=== PATIENT | male | born 1970 | race Caucasian/White ===

== ENCOUNTER 2020-06-14 15:59 | Outpatient (REF) | payer BC, SELFPAY | END 2020-06-14 16:00 | disposition home or self-care (01) | LOC: HO.LAB 15:59 | PROVIDERS: Visit Provider Internal Medicine | DX: Z20.828 Contact with and (suspected) exposure to other viral communicable diseases (principal) | CPT/HCPCS: C9803; U0003 ==

== ENCOUNTER 2022-04-18 07:15 | Day surgery (SDC) | payer BC, SELFPAY ==
--- NOTE | 2022-04-17 10:07 | HO.ANESPROP2 ---
Documented by User: Kaelyn Rowley NP 04/17/22 10:08 HPI - Anesthesia Eval Consult details Narrative: 51yo M for Colonoscopy [facility] Past Medical History Medical History GERD (gastroesophageal reflux disease) Hypertension Hypothyroidism Lupus EMRE on CPAP Surgical History Surgical History History of carpal tunnel release History of esophagogastroduodenoscopy (EGD) History of gastric bypass History of lumbar spinal fusion History of right knee surgery Social History Social History Patient Tobacco Use Status: Former Tobacco user Are you DNR?: No Advance Directives: No Advance Directives Information Provided: Yes Nutrition Risks: No Nutritional Risk Meds Allergies Allergy/AdvReac Type Severity Reaction Status Date / Time No Known Allergies Allergy Verified 04/18/22 07:56 Home Medications Medication Instructions Recorded Confirmed Last Taken Type jhkdych-txwjfbrolfbqc-kadaguco 250 2 tab PO Q6H PRN Migraine Headache 04/17/22 04/17/22 04/09/22 History mg-250 mg-65 mg tablet (Excedrin Extra Strength) blood sugar diagnostic (OneTouch 04/17/22 04/17/22 Unknown History Verio test strips) hydrochlorothiazide 25 mg tablet 1 tab PO DAILY 04/17/22 04/17/22 04/16/22 History levothyroxine 200 mcg tablet 1 tab PO DAILY 04/17/22 04/17/22 04/18/22 History (Synthroid) lisinopril 30 mg tablet 1 tab PO DAILY 04/17/22 04/17/22 04/18/22 History metformin 500 mg tablet 1 tab PO BID 04/17/22 04/17/22 04/16/22 History omeprazole 40 mg capsule,delayed 40 mg PO DAILY 04/17/22 04/17/22 04/17/22 History release Exam Exam Date and Time: April 17, 2022 1007 Assessment and Plan Assessment Anesthesia Assessment: Chart Reviewed Documented by User: Angelita Archibald MD 04/18/22 09:02 [facility] Past Medical History Medical History GERD (gastroesophageal reflux disease) Hypertension Hypothyroidism Lupus EMRE on CPAP Surgical History Surgical History History of carpal tunnel release History of esophagogastroduodenoscopy (EGD) History of gastric bypass History of lumbar spinal fusion History of right knee surgery History of Problems with Anesthesia: No Social History Social History Patient Tobacco Use Status: Former Tobacco user Are you DNR?: No Advance Directives: No Advance Directives Information Provided: Yes Nutrition Risks: No Nutritional Risk Meds Allergies Allergy/AdvReac Type Severity Reaction Status Date / Time No Known Allergies Allergy Verified 04/18/22 07:56 Home Medications Medication Instructions Recorded Confirmed Last Taken Type khdywmx-dqmjoxemoajlk-earctpvx 250 2 tab PO Q6H PRN Migraine Headache 04/17/22 04/17/22 04/09/22 History mg-250 mg-65 mg tablet (Excedrin Extra Strength) blood sugar diagnostic (OneTouch 04/17/22 04/17/22 Unknown History Verio test strips) hydrochlorothiazide 25 mg tablet 1 tab PO DAILY 04/17/22 04/17/22 04/16/22 History levothyroxine 200 mcg tablet 1 tab PO DAILY 04/17/22 04/17/22 04/18/22 History (Synthroid) lisinopril 30 mg tablet 1 tab PO DAILY 04/17/22 04/17/22 04/18/22 History metformin 500 mg tablet 1 tab PO BID 04/17/22 04/17/22 04/16/22 History omeprazole 40 mg capsule,delayed 40 mg PO DAILY 04/17/22 04/17/22 04/17/22 History release Exam Airway Mallampati Class: III TM Dist: >3cm Neck ROM: Limited Loose/Missing/Broken Teeth: No Heart: RRR Lungs: CTA Assessment and Plan Final Anesthetic Review History of Problems with Anesthesia: No NPO: Yes ASA Class: III Final Preanesthetic Review: Meds/Allgs Chart Reviewed, Consent Obtained/Reviewed and Anes Risks/Benef Reviewed Patient Risk: Intermediate Procedure Risk: Low Anesthetic Plan Anesthetic Plan: MAC: Disposition: Standard PACU
[2022-04-18 07:12] VITALS: BMI 52.7
[2022-04-18 07:15] VITALS: BP 155/84; PULSE 90; RESP 18; TEMP 36.8; O2SAT 97
[2022-04-18] MEDS: Lactated Ringers 1,000 ML 100 ML IVCONT (07:40)
[2022-04-18 07:54] LABS: Glucose, Whole Blood 128 mg/dL (60-115)
--- NOTE | 2022-04-18 07:57 | MHC.SHP ---
Pre-Procedural Eval Section A Date of Service: 04/18/22 Section B Chief Complaint: screening Details of Present Illness: see H&P no changes Relevant Family History (Specify if Yes): No Relevant Social History: None Present Medications: see Short Stay Collaborative assessment Medical History: No relevant PMH History of Previous Operations: No relevant previous surgery Allergies: Allergies Allergy/AdvReac Type Severity Reaction Status Date / Time No Known Allergies Allergy Verified 04/18/22 07:56 Review of Systems Sugical H&P ROS: Negative: Constitution, Cardiovascular, Respiratory, Neurological, Psychiatric, Hem-Onc, Allergic/Immunologic, Gastrointestinal, Genitourinary, Musculoskeletal, Integumentary, Endocrine and Eyes/Ears/Nose/Throat Exam Surgical H&P Exam: Normal: HEENT, Normal: Heart, Normal: Lungs, Normal: Extremities, Normal: Abdomen, Normal: Skin and Normal: Neurological Plan Diagnosis/Plan: Unchanged I have reviewed the history and physical and performed a pertinent physical examination on my patient. No changes have occurred unless specified.
[2022-04-18 08:40] VITALS: BP 116/74; PULSE 85; RESP 20; TEMP 36.7; O2SAT 96
--- NOTE | 2022-04-18 08:44 | PM.OP ---
Brief Operative Note Date of Service: 04/18/22 Pre-op diagnosis: screening Post-op diagnosis: same Procedure: col;onoscopy Surgeon: Cuate Curry Anesthesia: MAC Was an Territory Manager used for this Procedure?: No Estimated blood loss (mL): 2 Pathology: other Condition: stable Disposition: PACU
[2022-04-18 08:55] VITALS: BP 106/67; PULSE 88; RESP 20; TEMP 36.8; O2SAT 96
[2022-04-18 09:05] VITALS: BP 114/66; PULSE 80; RESP 20; TEMP 36.8; O2SAT 96
--- NOTE | 2022-04-18 09:09 | OP_ITS ---
SURGEON: Cuate Curry MD PREOPERATIVE DIAGNOSIS: POSTOPERATIVE DIAGNOSIS: PROCEDURE PERFORMED: Colonoscopy with biopsy and snare polypectomy DATE: 04/18/22 INDICATIONS: Colon cancer screening ESTIMATED BLOOD LOSS: COMPLICATIONS: ANESTHESIA: ASSISTANTS: SPECIMENS: DESCRIPTION OF PROCEDURE: History and physical performed. The risks and benefits of the procedure were explained to the patient. The patient was placed in the left lateral decubitus position. Informed consent was obtained prior to the procedure. The digital rectal exam was performed and was found to be normal. The Olympus pediatric video colonoscope was introduced into the rectum and advanced to the cecum without difficulty. The cecum was identified by transillumination, palpation, and identification of ileocecal valve. Examination was performed. The scope was removed. He tolerated the procedure well and was returned to recovery area in stable condition. FINDINGS: The terminal ileum was normal. The visualized colonic mucosa was normal. The quality of the prep was good. Three polyps were identified, two were present in the cecum measuring less than 5 mm. These were removed with biopsy forceps. The 3rd polyp at 70 cm measured approximately 8 mm and was removed with a snare. The polyp was recovered via suction. No other polyps were identified. Retroflexed examination showed some small internal hemorrhoids. The quality of the prep was good. IMPRESSION: Colon polyps. RECOMMENDATION: Follow up the biopsy results. MD AYESHA Aldana/STACEY / [id number] MTDD
== END 2022-04-18 09:32 | disposition home or self-care (01) ==
PROVIDERS: PCP Internal Medicine; Visit Provider Internal Medicine Gastroenterology
PROC: 0DJD8ZZ Inspection of Lower Intestinal Tract, Via Natural or Artificial Opening Endoscopic (ICD-10-PCS; CPT 45378; principal; 2022-04-18 08:10)
DX: Z12.11 Encounter for screening for malignant neoplasm of colon (principal); D12.0 Benign neoplasm of cecum; D12.4 Benign neoplasm of descending colon; K64.8 Other hemorrhoids; K21.9 Gastro-esophageal reflux disease without esophagitis; I10 Essential (primary) hypertension; G47.33 Obstructive sleep apnea (adult) (pediatric); E03.9 Hypothyroidism, unspecified; M32.9 Systemic lupus erythematosus, unspecified; Z79.899 Other long term (current) drug therapy; Z99.89 Dependence on other enabling machines and devices; Z79.1 Long term (current) use of non-steroidal anti-inflammatories (NSAID); Z98.84 Bariatric surgery status
CPT/HCPCS: 45385; 45380; 82947; 88305

== ENCOUNTER 2022-05-29 13:16 | Emergency (ER) | payer BC, SELFPAY ==
--- NOTE | ~2022-05-29 | XR_ITS ---
EXAMINATION: RIGHT HIP, RIGHT KNEE CLINICAL INFORMATION: s/p near fall c right hip/knee pain COMPARISON: CT chest 04/18/2022 TECHNIQUE: 4 views right knee, single view pelvis with 2 additional views right hip FINDINGS: Posterior pedicular screws and disc spacers are visualized in the lower lumbosacral spine. No pelvic fracture is seen. The right hip is unremarkable without fracture or bony destructive lesion. Mild degenerative changes are present in the knee with some marginal tibial plateau osteophytes. No fractures or dislocations are seen. No chondrocalcinosis or joint effusion. XR/XR knee RT 4V IMPRESSION: No evidence of an acute osseous injury. Mild degenerative changes in the knee.
--- NOTE | ~2022-05-29 | XR_ITS ---
EXAMINATION: RIGHT HIP, RIGHT KNEE CLINICAL INFORMATION: s/p near fall c right hip/knee pain COMPARISON: CT chest 04/18/2022 TECHNIQUE: 4 views right knee, single view pelvis with 2 additional views right hip FINDINGS: Posterior pedicular screws and disc spacers are visualized in the lower lumbosacral spine. No pelvic fracture is seen. The right hip is unremarkable without fracture or bony destructive lesion. Mild degenerative changes are present in the knee with some marginal tibial plateau osteophytes. No fractures or dislocations are seen. No chondrocalcinosis or joint effusion. XR/XR hip RT w [id number] IMPRESSION: No evidence of an acute osseous injury. Mild degenerative changes in the knee.
[2022-05-29 14:16] VITALS: BP 137/83; PULSE 90; RESP 16; TEMP 36.1; O2SAT 95; BMI 52.6
--- NOTE | 2022-05-29 14:19 | ED_ITS ---
HPI - Fall General Chief Complaint: Fall <BHARTI Heard - Last Filed: 05/29/22 14:20> Stated Complaint: r leg pain <BHARTI Heard - Last Filed: 05/29/22 14:20> Time Seen by Provider: 05/29/22 16:10 <BHARTI Heard - Last Filed: 05/29/22 14:20> Source: patient <BHARTI Dixon - Last Filed: 05/29/22 16:47> Mode of arrival: ambulatory <BHARTI Dixon - Last Filed: 05/29/22 16:47> Limitations: no limitations <BHARTI Dixon - Last Filed: 05/29/22 16:47> History of Present Illness HPI Narrative: 51-year-old male with history of morbid obesity, diabetes, HT, hypothyroidism, GERD who presents to the ER for evaluation of a right hamstring injury sustained at 04:30 this morning. Patient states he was walking outside when he slipped on some ice. He didn't actually fall down but he pulled his leg and felt some pop behind his leg. He has been able to walk on it but with some discomfort. He also reports pain with sitting. He works as a diesel truck mechanic, tried to go to work but he was too uncomfortable so he came to the ER for further e valuation. No other injuries. <BHARTI Dixon - Last Filed: 05/29/22 16:47> MD complaint: fall <BHARTI Dixon - Last Filed: 05/29/22 16:47> Onset (ago): hour(s) (12) <BHARTI Dixon - Last Filed: 05/29/22 16:47> Fall from: standing <BHARTI Dixon - Last Filed: 05/29/22 16:47> Fall witnessed: no <BHARTI Dixon - Last Filed: 05/29/22 16:47> Place fall occurred: street <BHARTI Dixon - Last Filed: 05/29/22 16:47> Loss of consciousness: none <BHARTI Dixon - Last Filed: 05/29/22 16:47> Prolonged down time: no <BHARTI Dixon - Last Filed: 05/29/22 16:47> Symptoms prior to fall: none <BHARTI Dixon - Last Filed: 05/29/22 16:47> Context: tripped/slipped <BHARTI Dixon - Last Filed: 05/29/22 16:47> Location of injury - extremities: right: thigh <BHARTI Dixon - Last Filed: 05/29/22 16:47> Severity: moderate <BHARTI Dixon - Last Filed: 05/29/22 16:47> Severity scale (1-10): 6 <BHARTI Dixon - Last Filed: 05/29/22 16:47> Quality: aching <BHARTI Dixon - Last Filed: 05/29/22 16:47> Associated symptoms (after fall): denies <BHARTI Dixon - Last Filed: 05/29/22 16:47> Related Data Home Medications: Home Medications Medication Instructions Recorded Confirmed gccxycd-dkcosmhpoyhyw-dxnzmeqo 250 2 tab PO Q6H PRN Migraine Headache 04/17/22 04/17/22 mg-250 mg-65 mg tablet (Excedrin Extra Strength) blood sugar diagnostic (OneTouch 04/17/22 04/17/22 Verio test strips) hydrochlorothiazide 25 mg tablet 1 tab PO DAILY 04/17/22 04/17/22 levothyroxine 200 mcg tablet 1 tab PO DAILY 04/17/22 04/17/22 (Synthroid) lisinopril 30 mg tablet 1 tab PO DAILY 04/17/22 04/17/22 metformin 500 mg tablet 1 tab PO BID 04/17/22 04/17/22 omeprazole 40 mg capsule,delayed 40 mg PO DAILY 04/17/22 04/17/22 release Previous Rx's Medication Instructions Recorded cane #1 ea 05/29/22 ibuprofen 800 mg tablet 800 mg PO Q8H PRN pain #20 tabs 05/29/22 lidocaine 5 % topical patch 1 patch topical DAILY #15 ea 05/29/22 <BHARTI Heard - Last Filed: 05/29/22 14:20> Allergies/Adverse Reactions: Allergies Allergy/AdvReac Type Severity Reaction Status Date / Time No Known Allergies Allergy Verified 04/18/22 07:56 <BHARTI Heard - Last Filed: 05/29/22 14:20> Review of Systems Review of Systems: Constitutional: No Fever, No Chills ENT/Mouth: No sore throat, No Rhinorrhea Cardiovascular: No Chest Pain, No SOB Gastrointestinal: No Nausea, No Vomiting, No abdominal Pain Musculoskeletal: No joint pain, + Myalgias Skin: No Skin Lesions, No rash Neuro: No Weakness, No Numbness, No Dizziness, No Headache Heme/Lymph: No Bruising <BHARTI Dixon - Last Filed: 05/29/22 16:47> [facility] Past Medical History Medical History: Medical History GERD (gastroesophageal reflux disease) Hypertension Hypothyroidism Lupus EMRE on CPAP <BHARTI Heard - Last Filed: 05/29/22 14:20> Surgical History: Surgical History History of carpal tunnel release History of esophagogastroduodenoscopy (EGD) History of gastric bypass History of lumbar spinal fusion History of right knee surgery <BHARTI Heard - Last Filed: 05/29/22 14:20> Social History Social History: Social History Patient Tobacco Use Status: Former Tobacco user Advance Directives: Yes Advance Directives Information Provided: Yes Advance Directives on File: No <BHARTI Heard - Last Filed: 05/29/22 14:20> Physical Exam Vital Signs: Vital Signs: Last Vital Signs Temp 97.0 F 05/29/22 14:16 Pulse 90 05/29/22 14:16 Resp 16 05/29/22 14:16 BP 137/83 05/29/22 14:16 Pulse Ox 95 05/29/22 14:16 O2 Del Method 05/29/22 14:16 BMI result Body Mass Index 52.6 <BHARTI Heard - Last Filed: 05/29/22 14:20> Vital Signs: Last Vital Signs Temp 97.0 F 05/29/22 14:16 Pulse 90 05/29/22 14:16 Resp 16 05/29/22 14:16 BP 137/83 05/29/22 14:16 Pulse Ox 95 05/29/22 14:16 O2 Del Method 05/29/22 14:16 BMI result Body Mass Index 52.6 <BHARTI Dixon - Last Filed: 05/29/22 16:47> Appearance: Alert. Oriented X3. No acute distress. HEENT: normal inspection CVS: Normal heart rate and rhythm. Pulses normal. Respiratory: No respiratory distress. Skin: Skin warm and dry. Normal skin color. Normal skin turgor. No rashes. Extremities: Normal inspection of bilateral lower extremities. There is tenderness of the posterior right thigh throughout. No ecchymosis appreciated. Pain with flexion and extension of the knee. Normal range of motion of the knee and hip. Normal strength Neuro: Oriented X 3. No motor deficit. No sensory deficit. slightly antalgic gait but steady <BHARTI Dixon - Last Filed: 05/29/22 16:47> Course Course Course Narrative: [facility]-14:20PM - 51yoM presenting to the ED c c/o of R Hip/posterior upper leg/and right knee pain after he had a near fall prior to arrival today on ice. Denies actual fallen to the ground head injury loss of consciousness or any other injuries complaints or concerns at this time. Plan: Normal steady gait. Will obtain x-ray of right hip/right knee patient wi ll be sent back to the waiting room for further evaluation treatment emergency minor care. <BHARTI Heard - Last Filed: 05/29/22 14:20> Reevaluation(s) Reevaluation #1: patient seen and examined in the treatment room. X-rays reviewed. His pain is mostly muscular involving the right hamstring. Most likely sprain, he also may possibly have a partial tear. There is no ecchymosis on examination and his strength and range of motion are intact. No urgent need for orthopedics referral. Will treat conservatively with pain control, rest, ice and elevation. Will have him refer to orthopedics if he has ongoing pain despite these conservative measures. Patient agrees with plan. Stable for discharge home <BHARTI Dixon - Last Filed: 05/29/22 16:47> Medications Administered Discontinued Medications Generic Name Dose Route Start Last Admin Trade Name Freq PRN Reason Stop Dose Admin Acetaminophen 650 mg 05/29/22 16:32 05/29/22 16:36 Acetaminophen 325 Mg Tablet PO 05/29/22 16:33 650 mg ONCE ONE Administration <BHARTI Heard - Last Filed: 05/29/22 14:20> Medications Administered Discontinued Medications Generic Name Dose Route Start Last Admin Trade Name Rogelio PRN Reason Stop Dose Admin Acetaminophen 650 mg 05/29/22 16:32 05/29/22 16:36 Acetaminophen 325 Mg Tablet PO 05/29/22 16:33 650 mg ONCE ONE Administration <BHARTI Dixon - Last Filed: 05/29/22 16:47> Discharge Plan Discharge Clinical Impression: Hamstring muscle strain <BHARTI Heard Last Filed: 05/29/22 14:20> Patient Disposition: Home, Self-Care <BHARTI Heard Last Filed: 05/29/22 14:20> Instructions: Hamstring Injury (ED) <BHARTI Heard - Last Filed: 05/29/22 14:20> Additional Instructions: X-rays today did not show any acute injuries or broken bones. Rest your leg and elevate it under some pillows when possible. Recommend DAYSI wrap for support and compression. Use ice several times per day for the next 48 hours. You may bear weight as tolerated. If pain is too severe, use crutches until better. Take Motrin and/or Tylenol as needed for pain. Follow up with your doctor as needed. Follow up with Orthopedics if pain persists. <BHARTI Heard - Last Filed: 05/29/22 14:20> Prescriptions: New ibuprofen 800 mg tablet 800 mg PO Q8H PRN (Reason: pain) Qty: 20 0RF lidocaine 5 % adhesive patch,medicated 1 patch topical DAILY Qty: 15 0RF Rx Instructions: leave on most painful area for up to 12 hrs (DME) cane Device See Rx Instructions .Route Qty: 1 0RF Rx Instructions: As directed No Action metformin 500 mg tablet 1 tab PO BID (DME) OneTouch Verio test strips Strip MISCELLANEOUS omeprazole 40 mg Capsule,Delayed Release(Dr/Ec) 40 mg PO DAILY lisinopril 30 mg tablet 1 tab PO DAILY levothyroxine [Synthroid] 200 mcg tablet 1 tab PO DAILY hydrochlorothiazide 25 mg tablet 1 tab PO DAILY Excedrin Extra Strength 250-250-65 mg Tablet 2 tab PO Q6H PRN (Reason: Migraine Headache) <BHARTI Heard - Last Filed: 05/29/22 14:20> Referrals: [facility] [place] Orthopedic Surgeons [Provider Group] Charlie Wilson MD [Primary Care Provider] - <BHARTI Heard - Last Filed: 05/29/22 14:20> Stand Alone Forms: Work/School Release <BHARTI Heard - Last Filed: 05/29/22 14:20> Interventions: ED Discharge Assessment Last Done: 05/29/22 16:38 <BHARTI Heard - Last Filed: 05/29/22 14:20> Discharge Date/Time: 05/29/22 16:38 <BHARTI Heard - Last Filed: 05/29/22 14:20>
[2022-05-29] MEDS: Acetaminophen 325 MG TABLET 650 MG PO (16:36)
== END 2022-05-29 16:38 | disposition home or self-care (01) ==
PROVIDERS: Emergency Provider Internal Medicine; PCP Internal Medicine
DX: S76.911A Strain of unspecified muscles, fascia and tendons at thigh level, right thigh, initial encounter (principal); M25.561 Pain in right knee; M25.551 Pain in right hip; W00.0XXA Fall on same level due to ice and snow, initial encounter; Y93.9 Activity, unspecified; Y92.9 Unspecified place or not applicable; Y99.9 Unspecified external cause status; Z79.899 Other long term (current) drug therapy
CPT/HCPCS: 73502; 73564; 99283

== ENCOUNTER 2023-07-29 16:05 | Outpatient (REF) | payer BC, SELFPAY ==
[2023-07-29 17:35] LABS: MANUAL DIFF FLAG NO
[2023-07-29 17:48] LABS: Basophils Absolute Auto 0.1 X10*3/uL (0.0-0.2); Basophils Percent Auto 0.7 % (0-2); Eosinophils Absolute Auto 0.3 X10*3/uL (0.0-0.4); Eosinophils Percent Auto 3.6 % (0-4); Hematocrit 43.3 % (42.0-52.0); Hemoglobin 14.2 g/dl (14.0-18.0); Imm Gran Abs Auto 0.02 X10*3/uL (0.00-0.03); Imm Gran Pct Auto 0.2 % (0.0-0.4); Lymphocytes Absolute Auto 2.8 X10*3/uL (1.2-4.9); Lymphocytes Percent Auto 32.1 % (20-40); Mean Corpuscular HGB Conc 32.8 g/dl (31.0-36.0); Mean Corpuscular Hemoglobin 29.4 pg (27.0-33.0); Mean Corpuscular Volume 89.6 fL (80.0-98.0); Mean Platelet Volume 10.1 fL (9.4-12.4); Monocytes Absolute Auto 0.7 X10*3/uL (0.1-1.2); Monocytes Percent Auto 8.3 % (2-11); Neutrophils Absolute Auto 4.9 x10*3/uL (2.0-8.3); Neutrophils Percent Auto 55.1 % (45-73); Platelet Count 241 X10*3/uL (160-400); Red Blood Count 4.83 X10*6/uL (4.60-5.80); Red Cell Distribution Width 12.6 % (11.0-16.0); White Blood Count 8.8 X10*3/uL (4.8-10.8)
[2023-07-29 18:42] LABS: Alanine Aminotransferase 137 U/L (0-40); Albumin Level 3.7 g/dL (3.5-5.0); Alkaline Phosphatase 77 U/L (39-117); Anion Gap 17 (12-20); Aspartate Amino Transferase 104 U/L (5-37); Bilirubin Total 0.3 mg/dL (0.0-1.0); Blood Urea Nitrogen 16 mg/dL (9-16); Calcium 9.3 mg/dL (8.4-10.2); Carbon Dioxide 25 mmol/L (22-29); Chloride 98 mmol/L (96-108); Estimated Glomerular Filt Rate > 60; Glucose Random 303 mg/dL (60-115); Iron 41 mcg/dL (45-160); Percent Iron Saturation 11 % (15-50); Sodium 136 mmol/L (135-145); Total Iron Binding Capacity 369 mcg/dL (228-428); Total Protein 7.8 g/dL (6.5-8.0); Unsaturated Iron Binding 328 ug/dL
[2023-07-29 18:59] LABS: TSH reflex Free T4 8.65 uIU/mL (0.32-4.0)
[2023-07-29 19:58] LABS: Free T4 (Free Thyroxine) 0.94 ng/dL (0.71-1.85)
== END 2023-07-29 16:06 | disposition home or self-care (01) ==
LOC: HO.CHCLDS 16:05
PROVIDERS: Visit Provider Internal Medicine
DX: E11.9 Type 2 diabetes mellitus without complications (principal)
CPT/HCPCS: 36415; 80053; 83540; 84439; 84443; 85025

== ENCOUNTER 2023-12-21 14:24 | Outpatient (REF) | payer SELFPAY ==
[2023-12-21 15:52] LABS: Creatinine Urine 145.84 mg/dL; Microalbum/Creatinine Ratio Ur 4.1 ug/mg cr (<30)
[2023-12-21 15:58] LABS: Cholesterol 172 mg/dL (<200); HDL Cholesterol 37 mg/dL (>40); LDL Cholesterol Calculated 101 mg/dL (<100); Triglycerides 172 mg/dL (<150)
[2023-12-21 16:05] LABS: TSH reflex Free T4 2.27 uIU/mL (0.32-4.0)
== END 2023-12-21 14:25 | disposition home or self-care (01) ==
LOC: HO.HHCL 14:24
PROVIDERS: Visit Provider Internal Medicine
DX: E11.9 Type 2 diabetes mellitus without complications (principal); E04.1 Nontoxic single thyroid nodule
CPT/HCPCS: 36415; 80061; 82043; 82570; 84443

== ENCOUNTER 2025-04-06 08:21 | Outpatient (REF) | payer OTHER, SELFPAY ==
--- OUTSIDE RECORDS SUMMARY | 2025-04-06 08:15 | XMS_ITS | Encounter Summary ---
Author Organization [employer] Address [address] [place] [address] Care Team Providers Care Inside Sales Territory Manager Name Role Phone Charlie Wilson MD Primary Care Prov ider Reason for Visit * Reason Comments Dental Exam Dental Pain Dental pain on the u pper and lower right side for 2 weeks Encounter Details Date Type Department Care Team ([facility] st Contact Info) Description 04/06/2025 8:15 AM EDT Office Visit [facility] [address] [place] [address] Arrived Social History Tobacco Use Types Packs/Day Years Used Date Smoking Tobacco: Former Cigarettes Q uit: 2013 Smokeless Tobacco: Never Alcohol Use Standard Drinks/Week Comments Yes 0 (1 standard drink = 0.6 oz pur e alcohol) Depression Answer Date Recorded Patient Health Questionnaire-9 Score 2 09/09/2022 Housing Stability Answer Date Recorded What is your housing situation today? I have slimoswaldo balderas 04/16/[address] you li ve. Do you have problems with any of the following? None of the above 04/16/2023 Food Insecurity Answer Date Recorded Within the past 12 months, y ou worried that your food would run out before you got money to buy more: Never True 04/16/2023 Within the past 12 months,th e food you bought just didn't last and you didn't have enough money to get more: Never True 07/2022 Transportation Answer Date Recorded In the past 12 months, has l ack of transportation kept you from medical appts, meetings, work or from getting things needed for daily living? No 04/16/2023 Utilities Answer Date Recorded In the past 12 months, has t he electric, gas, oil or water company threatened to shut off services in your home? No 04/16/2023 Depression Answer Date Recorded Patient Health Questionnaire-2 Score 0 12/16/2023 Sex and Gender Information Value Date Recorded Sex Assigned at Male 04/14/2022 10:31 AM EDT Legal Sex Male 10:31 AM EDT Gender Identity Male 04/14/2022 10:31 AM EDT Sexual Orientation Straight 04/14/2022 10 :31 AM EDT documented as of this encounter Plan of Treatment Upcoming Encounters Date Type Department Care Team (Late st Contact Info) Description 05/04/2025 3:45 PM EST Office Visit [facility] [address] [place] [address] Charlie Wilson MD [address] [place] [address] documented as of this encounter Visit Diagnoses Not on filedocumented in this encounter Additional Health Concerns Assessment Noted Time PHQ-9 Depression Total Score: 2 09/10/19 23 3:28 PM EDT documented as of this encounter Care Teams Inside Sales Territory Manager Relationship Specialty Start Date End Date Charlie Wilson MD [address] [place] [address] PCP - General Internal Medicine 11/08/19 documented as of this encounter
--- OUTSIDE RECORDS SUMMARY | 2025-04-06 08:45 | XMS_ITS | Clinical Summary ---
Author Organization [facility] Address [address] [address] Phone Care Team Providers Care Smoking Pipe Driller And Threader Name Role Phone Pcp, Unknown Primary Care Provider Unavailabl e Allergies No known active allergies Medications tamsulosin (FLOMAX) 0.4 mg Cap Take 1 capsule (0.4 mg total) by mouth daily for 7 days. 7 capsule 3 Active ondansetron (ZOFRAN-ODT) 4 MG disintegrating tablet Take 1 tablet (4 mg total) by mouth every 8 (eight) hours as needed for nausea. 8 tablet 3 Active polyethylene glycol (MIRALAX) 17 gram packet Take 17 g by mouth daily. 14 packet 3 Active Social History Tobacco Use Types Packs/Day Years Used Date Smoking Tobacco: Never Smokeless Tobacco: Never Tobacco Cessation:Counseling Given: Not Answered Alcohol Use Standard Drinks/Week Comments Never 0 (1 standard drink = 0.6 oz pur e alcohol) Education Answer Date Recorded Are you interested in more education? Not on elba e 10/12/2022 Are you concerned about learning? Not on file 10/12/2022 No 10/12/2022 No 10/12/2022 Digital Access Answer Date Recorded No 11/09/2022 No 11/09/2022 No 11/09/2022 Reliable internet access at home? Not on file 11/09/2022 Device with a working camera? Not on file Intimate Partner Violence Answer Date R ecorded Are you denied basic needs s uch as food, clothing, or medical care? No 10/12/2022 In the past 12 months have y ou been in a relationship with a person who hurts, threatens, or tries to control you? No 10/12/2022 Are you denied basic needs s uch as food, clothing, or medical care? No 10/12/2022 In the past 12 months have y ou been in a relationship with a person who hurts, threatens, or tries to control you? No 10/12/2022 Sex and Gender Information Value Date Recorded Sex Assigned at Male 10/12/2022 2:18 PM EDT Legal Sex Male 1:53 PM EDT Gender Identity Male 10/12/2022 2:18 PM EDT Sexual Orientation Not on file Last Filed Vital Signs Vital Sign Reading Time Taken Comments Blood Pressure 122/74 10/12/2022 5:21 PM EDT Pulse 93 10/12/2022 2:14 PM EDT Temperature 37 C (98.6 F) 10/12/2022 5:21 PM EDT Respiratory Rate 19 10/12/2022 2:14 PM EDT Oxygen Saturation 96% 10/12/2022 5:21 PM EDT Inhaled Oxygen Concentration - - Weight 181.9 kg (401 lb) 10/12/2022 2:14 PM EDT Height 188 cm (6' 2 ) 10/12/2022 2:14 PM EDT Body Mass Index 51.49 10/12/2022 2:14 PM EDT Plan of Treatment Health Maintenance Due Date Last Done Comments LIPID PANEL 1971 DEPRESSION SCREENING 1983 HEPATITIS C SCREENING 10/27/1989 HIV ONE-TIME SCREENING (18-65 YEARS) 10/27/1989 SMOKING STATUS SCREENING (Once After 26 Yrs) 10/27/1997 SCREENING FOR DIABETES 10/27/2006 COLOGUARD 10/27/2016 COLONOSCOPY 10/27/2016 COLORECTAL CANCER SCREENING 10/27/2016 FIT TEST 10/27/2016 FOBT 10/27/2016 SIGMOIDOSCOPY 10/27/2016 VIRTUAL COLONOSCOPY 10/27/2016 PNEUMOCOCCAL VACCINES (50+ years) (1 of 1 - PCV) 10/27/2021 RSV VACCINE (1 - Risk 50-74 years 1-dose series) 10/27/2021 INFLUENZA VACCINE (#1) 2025 2, 03/04/2022, 05/28/2021, Additional history exists COVID-19 VACCINE ( - season) 2025 10/31/2020, 10/10/2020 Adult Td,Tdap Booster 07/24/2032 07/24/2022 ZOSTER VACCINES Completed 07/24/2022, 05/23/2022 HEPATITIS A VACCINES Aged Out No long er eligible based on patient's age to complete this topic HIB VACCINES Aged Out No longer eligi ble based on patient's age to complete this topic MENINGOCOCCAL VACCINES (ACWY) Aged Out No longer eligible based on patient's age to complete this topic MENINGOCOCCAL VACCINES (B) Aged Out N o longer eligible based on patient's age to complete this topic Medical Devices Not on file Care Teams Smoking Pipe Driller And Threader Relationship Specialty Start Date End Date Pcp, Unknown PCP - General 10/12/22 Additional Source Comments The information contained in this document represents components of the legal health record. It is not the complete legal health record.[facility]
--- OUTSIDE RECORDS SUMMARY | 2025-04-06 08:45 | XMS_ITS | Encounter Summary ---
Author Organization [employer] Address [address] [facility] 7t [place] [address] Care Team Providers Care Schedule Hanger Name Role Phone Charlie Wilson MD Primary Care Prov ider Encounter Details Date Type Department Care Team ([facility] st Contact Info) Description 08/30/2024 Orders Only [facility] MED & PEDS [address] [place], [place] [phone] Charlie Wilson MD [address] [place] [address] Social History Tobacco Use Types Packs/Day Years Used Date Smoking Tobacco: Former Cigarettes Q uit: 2013 Smokeless Tobacco: Never Alcohol Use Standard Drinks/Week Comments Never 0 (1 standard drink = 0.6 oz pur e alcohol) Depression Answer Date Recorded Patient Health Questionnaire-9 Score 2 09/09/2022 Housing Stability Answer Date Recorded What is your housing situation today? I have slim balderas 04/16/[address] you [...] Description 05/04/2025 3:45 PM EST Office Visit [facility] MED & PEDS [address] [place] [address] Charlie Wilson MD [address] [place] [address] documented as of this encounter Visit Diagnoses Not on filedocumented in this encounter Additional Health Concerns Assessment Noted Time PHQ-9 Depression Total Score: 2 09/10/19 23 3:28 PM EDT documented as of this encounter Care Teams Schedule Hanger Relationship Specialty Start Date End Date Charlie Wilson MD [address] [place] [address] PCP - General Internal Medicine 11/08/19 documented as of this encounter
--- OUTSIDE RECORDS SUMMARY | 2025-04-06 08:45 | XMS_ITS | Encounter Summary ---
Author Organization [employer] Address [address] [place] [address] [address], [place] [address] Care Team Providers Care Director General Name Role Phone Charlie Wilson MD Primary Care Prov ider Encounter Details Date Type Department Care Team ([facility] Contact Info) Description 05/23/2022 Orders Only [facility] MEDICINE [address] [place] [address] Charlie Wilson MD [address] [place] [address] Gastroesophageal reflux disease without esophagitis (Primary Dx) Social History Tobacco Use Types Packs/Day Years Used Date Smoking Tobacco: Never Assessed Sex and Gender Information Value Date Recorded Sex Assigned at Male 04/14/2022 10:31 AM EDT Legal Sex Male 10:31 AM EDT Gender Identity Male 04/14/2022 10:31 AM EDT Sexual Orientation Straight 04/14/2022 10 :31 AM EDT documented as of this encounter Plan of Treatment Upcoming Encounters Date Type Department Care Team ([facility] Contact Info) Description 05/04/2025 3:45 PM EST Office Visit [facility] MED & PEDS [address] [place], [place] [phone] Charlie Wilson MD [address] [place] [address] documented as of this encounter Visit Diagnoses Diagnosis Gastroesophageal reflux disease without esophagitis- Primary Esophageal reflux documented in this encounter Care Teams Director General Relationship Specialty Start Date End Date Charlie Wilson MD [address] [place] [id number] PCP - General Internal Medicine 11/08/19 documented as of this encounter
--- OUTSIDE RECORDS SUMMARY | 2025-04-06 08:45 | XMS_ITS | Clinical Summary ---
Author Organization [employer] Address [address] [facility] 7[address] [place] [address] Care Team Providers Care Automotive Window Tinter Name Role Phone Charlie Wilson MD Primary Care Prov ider Allergies No known active allergies Medications multivitamin with minerals (Centrum) 9-200 mg-mcg tablet split tablet Take by mouth. 019 Active glucose blood (OneTouch Verio) test strip Inject 1 each under the skin in the morning, at noon, and at bedtime. 022 Active FreeStyle lancets Take 1 drop by [facility] ( non-drug; combo) route 3 times everyday 022 Active Continuous Blood Gluc Sales Merchandiser (FreeStyle Konrad 2 [place]) device Scan sensor every 8 hours 1 each 024 Active Continuous Blood Gluc Sensor (FreeStyle Konrad 2 Sensor) misc Apply 1 sensor every 14 days 2 each 11 024 Active levothyroxine (Synthroid) 112 MCG tablet Take 2 tablets (224 mcg) by mouth before breakfast. 180 tablet 3 024 Active hydroCHLOROthia zide (HYDRODiuril) 25 MG tabletIndicatio ns:Primary hypertension TAKE ONE TABLET BY MOUTH EVERY MORNING 90 tablet 1 025 Active lisinopril 30 MG tabletIndicatio ns:Primary hypertension TAKE ONE TABLET EVERY MORNING 90 tablet 3 025 Active ferrous gluconate (Fergon) 324 (37.5 Fe) MG tablet Take 1 tablet (324 mg) by mouth with breakfast. 90 tablet 3 025 2025 Active empagliflozin (Jardiance) 25 MG TAKE 1 TABLET BY MOUTH EVERY DAY 90 tablet 3 025 Active IBU 800 MG tabletIndicatio ns:Arthritis TAKE ONE TABLET THREE TIMES DAILY NEEDED FOR PAIN 90 tablet 1 025 Active tadalafil (Cialis) 20 MG tablet TAKE ONE TABLET BY MOUTH ONCE DAILY 90 tablet 025 Active Mounjaro 15 MG/0.5ML solution auto-injector INJECT 15MG SUBCUTANEOUSLY ONCE PER WEEK 2 mL 025 Active pantoprazole (ProtoNix) 40 MG EC tabletIndicatio ns:Gastroesopha geal reflux disease without esophagitis TAKE ONE TABLET BY MOUTH EVERY MORNING 90 tablet 1 025 Active tadalafil (Cialis) 20 MG tablet Take 1 tablet (20 mg) by mouth Once per day. 90 tablet 3 024 2024 Discontinued pantoprazole (ProtoNix) 40 MG EC tabletIndicatio ns:Gastroesopha geal reflux disease without esophagitis TAKE ONE TABLET BY MOUTH EVERY MORNING 90 tablet 1 025 2024 Discontinued Mounjaro 15 MG/0.5ML solution auto-injector INJECT 15MG SUBCUTANEOUSLY ONCE PER WEEK 2 mL 025 2024 Discontinued Active Problems Problem Noted Date Diagnosed Date Carpal tunnel syndrome of right wrist 03/17/2025 Assessment & Plan (03/17/2025 10:07 AM EDT): Will place referral for evaluation for carpal tunnel syndrome, Bronchitis 11/21/2024 Assessment & Plan (11/21/2024 7:12 PM EDT): Will provide augmentin, call back if not improving Screening for colon cancer 07/28/2023 Assessment & Plan (07/28/2023 1:15 PM EST): Done on 04/2022, no pathology result or post gi eval on chart will task Ma Erectile dysfunction due to diseases classified elsewhere 07/14/2022 Assessment & Plan (02/04/2024 12:45 PM EDT): Will try cialis daily with double dose before sexual encounter, Assessment & Plan (07/14/2022 4:27 PM EST): Symptoms did not improved with viagra/cialis, will refer to urology for evaluation, continue adequate glucose control Arthritis 07/14/2022 Primary hypertension 05/30/2022 Assessment & Plan (03/17/2025 10:06 AM EDT): Controlled, keep low sodium diet and exercise as tolerated, keep blood pressure log, follow up in 3 months Assessment & Plan (11/21/2024 7:06 PM EDT): Controlled, no changes will be made, encouraged low sodium diet and exercise as tolerated, keep bp log target <130/80, follow up in 3 months Assessment & Plan (06/29/2024 11:34 PM EST): Controlled, encouraged to keep low sodium diet and exercise as tolerated, will follow up in 4 months Assessment & Plan (04/05/2024 11:54 PM EDT): Controlled, continue same treatment, keep bp log, target <130/80 Assessment & Plan (02/04/2024 12:28 PM EDT): Controlled, contineu low sodium diet and exercise as tolerated, keep bp log, follow up in 3-4 months Assessment & Plan (07/28/2023 1:06 PM EST): Controlled on lisinopril 30mg, and hydrochlorothiazide, no changes will be made, reinforced low sodium diet and exercise as tolerated Assessment & Plan (09/19/2022 5:12 PM EDT): Controlled, no changes in treatment will be made, reinforced low sodium diet and exercise as tolerated Assessment & Plan (05/30/2022 12:39 PM EST): Controlled, on lisinopril and hydrochlorothiazide, reinforced low sodium diet and exercise as tolerated Type 2 diabetes mellitus wit hout complication, without long-term current use of insulin 05/30/2022 Assessment & Plan (11/21/2024 7:08 PM EDT): Controlled, continue mounjaro and jardiance, no episode of hypoglycemia reported, keep low carb/no sugar diet, will follow up in 3 months Assessment & Plan (06/29/2024 11:35 PM EST): Controlled, continue low carb/no sodium diet, will increase mounjaro to 15mg Assessment & Plan (04/05/2024 11:55 PM EDT): Improving, he has lost over 40lbs since starting mounjaro, no reported hypoglycemia, will increase dose to 12.5mg Assessment & Plan (02/04/2024 12:46 PM EDT): Improved with weekly mounjaro, also improved diet has helped, continue low carb no sugar diet, follow up in 3 months Assessment & Plan (07/28/2023 1:08 PM EST): Uncontrolled, he has been off medications due to lack of insurance, will start on metformin and mounjaro, also will order a cgb, and will refer to music educator Foot exam done Assessment & Plan (09/19/2022 5:13 PM EDT): Continue metformin, increase dose to 1000mg BID, continue lifestyle modifications, follow up in 3 months, will get new labs done by next appointment Assessment & Plan (05/30/2022 12:41 PM EST): On metformin 1000mg bid, no episode of hypoglycemia reported, will order new labs in 3 months, reinforced diet and exercise Class 3 severe obesity due t o excess calories with serious comorbidity in adult 05/30/2022 Assessment & Plan (06/29/2024 11:35 PM EST): Improving, he conitnues with low calorie diet and exercise as tolerated, will increase mounjaro to 15mg Assessment & Plan (05/30/2022 12:42 PM EST): Patient has gained 40lbs in the last 3 years, he was recently dx with DM, has hx of gastric sleeve on 2014, will refer to Dr Gleason at [facility] for evaluation Disorder of vision 01/26/2018 Gastroesophageal reflux disease without esophagi tis 01/26/2018 Non-toxic uninodular goiter 01/26/2018 Encounters Date Type Department Care Team Description 04/06/2025 8:15 AM EDT Office Visit [facility] ADULT DENTAL [address] [place] [address] Arrived 03/29/2025 Refill [facility] MED & PEDS [address] [place] [address] Charlie Wilson MD Gastroesophageal reflux disease without esophagitis 03/20/2025 Refill [facility] MEDICINE [address] [place] [address] Charlie Wilson MD 03/17/2025 9:30 AM EDT Telemedicine [facility] MED & PEDS [address] [place] [address] Charlie Wilson MD Primary hypertension (Primary Dx); Type 2 diabetes mellitus without complication, without long-term current use of insulin (HCC); Carpal tunnel syndrome of right wrist 03/17/2025 Travel 03/16/2025 Telephone [facility] MED & PEDS [address] [place] [address] Charlie Wilson MD chart prep 03/15/2025 Refill [facility] MED & PEDS [address] [place] [address] Charlie Wilson MD 03/14/2025 Telephone [facility] [address] [place] [address] Charlie Wilson MD Referral 02/22/2025 Telephone [facility] MED & PEDS [address] [place] [address] Charlie Wilson MD RV APPT 02/22/2025 Refill [facility] [address] [place] [address] Charlie Wilson MD 01/31/2025 Refill [facility] [address] [place], [place] [phone] Charlie Wilson MD from Last 3 Months Immunizations Immunization Administration Dates Next Due Influenza Injectable Quadriv alant Preservative Free IIV4 MDCK 05/23/2022 Influenza injectable quadriv alent IIV4 with preservative 08/04/2017 Influenza injectable quadrivalent preservative f ree 05/28/2021 Influenza, IIV3, injectable 03/04/2022 Pfizer Covid-19 Vaccine 12+ 10/31/2020, Tdap 07/24/2022 Zoster, Recombinant 07/24/2022,05/23/2022 Social History Tobacco Use Types Packs/Day Years Used Date Smoking Tobacco: Former Cigarettes Q uit: 2012 Smokeless Tobacco: Never Tobacco Cessation:Counseling Given: Not Answered Alcohol Use Standard Drinks/Week Comments Yes 0 [...] Orientation Straight 04/14/2022 10 :31 AM EDT Last Filed Vital Signs Vital Sign Reading Time Taken Comments Blood Pressure 109/74 03/17/2025 9:37 AM EDT Pulse 90 11/21/2024 3:37 PM EDT Temperature 36.6 C (97.9 F) 11/21/2024 3:37 PM EDT Respiratory Rate 18 11/21/2024 3:37 PM EDT Oxygen Saturation 97% 11/21/2024 3:37 PM EDT Inhaled Oxygen Concentration - - Weight 153 kg (338 lb) 11/21/2024 3:37 PM EDT Height 188 cm (6' 2 ) 11/21/2024 3:37 PM EDT Body Mass Index 43.4 11/21/2024 3:37 PM EDT Plan of Treatment Upcoming Encounters Date Type Department Care Team (Late st Contact Info) Description 05/04/2025 3:45 PM EST Office Visit [facility] MED & PEDS [address] [place] [address] MottCharlie Mercado MD [address] [place] [address] Health Maintenance Due Date Last Done Comments CT Colonography 1971 FIT DNA/Cologuard 1971 FIT 1971 FOBT 1971 Sigmoidoscopy 1971 Disability Screening 1971 Alcohol/Substance Use Screening 1983 Hepatitis B Vaccines (1 of 3 - 19+ 3-dose series) 10/27/1990 Pneumococcal Vaccine: 50+ Years (1 of 2 - PCV) 10/27/1990 SDOH Screening 09/10/2023 09/09/2022 Depression Screening 12/15/2024 12/16/2023, 09/10/19 23 Tobacco Screening 12/15/2024 12/16/2023 Diabetes: Urine Protein Screening 12/20/2024 12/21/2023 Lipid Panel 12/20/2024 12/21/2023, 12/2 02/2021, 06/29/2020 COVID-19 Vaccine ( season) 2025 10/31/2020, 10/10/2020 Influenza Vaccine (#1) 2025 , 03/04/2022, 05/28/2021, Additional history exists Diabetes: Hemoglobin A1C 05/23/2025 025, 04/04/2024, 12/16/2023, Additional history exists Eye Exam 2025 2024 Diabetes: Foot Exam 11/21/2025 11/21/2024, 11/21/2024, 11/21/2024, Additional history exists Colonoscopy 04/18/2027 04/18/2022 Colorectal Cancer Screening 04/18/2027 DTaP/Tdap/Td Vaccines (2 - Td or Tdap) 07/24/2032 07/24/2022 RSV Patients and Patients Aged 60 years or older (1 - 1-dose 75+ series) 10/27/2046 HIV Screening Completed 02/07/2022 Hepatitis C Screening Completed 02/07/2022, 022 Zoster Vaccines Completed 07/24/2022, 05/23/2022 HIB Vaccines Aged Out No longer eligi ble based on patient's age to complete this topic HPV Vaccines Aged Out No longer eligi ble based on patient's age to complete this topic Hepatitis A Vaccines Aged Out No long er eligible based on patient's age to complete this topic IPV Vaccines Aged Out No longer eligi ble based on patient's age to complete this topic Meningococcal B Vaccine Aged Out No l onger eligible based on patient's age to complete this topic Meningococcal Vaccine Aged Out No amna patricio eligible based on patient's age to complete this topic RSV under 20 months Aged Out No longe r eligible based on patient's age to complete this topic Rotavirus Vaccines Aged Out No longer eligible based on patient's age to complete this topic Procedures Procedure Name Priority Date/Time Associated Diagnosis Comments POCT GLYCATED HEMOGLOBIN, TOTAL Routine 11/21/2024 4:08 PM EDT Type 2 diabetes mellitus without complication, without long-term current use of insulin ([facility]) HM DIABETES EYE EXAM Routine 2024 12:59 PM EDT ALBUMIN, RANDOM URINE W/CREATININE Routine 12/21/2023 2:26 PM EDT Type 2 diabetes mellitus without complication, without long-term current use of insulin (CMS/HCC) LIPID PANEL, STANDARD Routine 12/21/2023 2:26 PM EDT Type 2 diabetes mellitus without complication, without long-term current use of insulin (CMS/HCC) COLONOSCOPY Routine 04/18/2022 1:05 PM EDT ZZZ HISTORICAL HEPATITIS C AB W/REFL TO HCV RNA, QN, PCR Routine 02/07/2022 11:16 AM EDT HIV 1/2 ANTIGEN/ANTIBODY, FOURTH GENERATION W/RFL Routine 02/07/2022 11:16 AM EDT from Last 3 Months or Most Recently Relevant to Health Maintenance Results * POCT A1C (11/21/2024 4:08 PM EDT) Hemoglobin A1C 5.2 4.0 - 6.0 % QC Media Lot # Comment:[id number] Lot# Expiration Date Comment:07/06/2026 Blood 11/21/2024 4:08 PM EDT Charlie Baires MD POINT OF CARE TEST ENTER/EDIT ORDERABLES Final Result * Diabetes Eye Exam (2024 12:59 PM EDT) Kerry Provider HEALTH MAINTENANCE Final Result * Albumin, Random Urine W/Creatinine (12/21/2023 2:26 PM EDT) Creatinine, Urine 145.84 mg/dL [facility] Microalbumin Urine 6.0 mg/L [facility] Microalbum Creatinine Ratio Ur 4.1 <30 ug/mg cr [facility] Comment:Albumin/Creatinine R atio Reference Ranges: Normal: < 30 ug/mg creatinine Microalbuminuria: 30 - 300 ug/mg creatinineClinical Albuminuria: > 300 ug/mg creatinine Urine (Urine, Random) 12/21/2023 2:26 PM EDT 12/21/2023 3:06 PM EDT us Charlie Baires MD LAB URINE ORDERABL ES Final Result Performing Organization Address [facility]/ZIP Co de Phone Number [facility] [address] [place] [address] [phone] * (ABNORMAL) Lipid Panel, Standard (12/21/2023 2:26 PM EDT) Triglycerides 172(H) <150 mg/dL [facility] Comment:Desirable Triglyceri de: less than 150 mg/dLBorderline High Triglyceride 150-199 mg/dLHigh Triglyceride: 200-499 mg/dLVery High Triglyceride: greater than or equal to 5OO mg/dL Cholesterol 172 <200 mg/dL [facility] Comment:Desirable Cholestero l: less than 200 mg/dLBorderline High Cholesterol: 200-239 mg/dLHigh Cholesterol: greater than 239 mg/dL LDL Cholesterol Calculated 101(H) <100 mg/dL [facility] Comment:Desirable LDL: less than 100 mg/dLNear Optimal/Above Optimal LDL: 110- 129 mg/dLBorderline High LDL: 130-159 mg/dLHigh LDL: 160-189 mg/dLVery High LDL: greater than or equal to 190 mg/dL HDL Cholesterol 37(L) >40 mg/dL [facility] Comment:Desirable HDL: great er than 40 mg/dL Note: This HDL assay may give artificially low results in patients with liver disease. Blood Venous blood specimen / Unknown 12/21/2023 2:26 PM EDT 12/21/2023 3:04 PM EDT us Charlie Baires MD LAB BLOOD ORDERABL ES Final Result Performing Organization Address City/[facility]/ZIP Co de Phone Number [facility] [address] [place] [address] [phone] * Hm Colonoscopy (04/18/2022 1:05 PM EDT) Historical Provider HEALTH MAINTENANCE Final Result * HEPATITIS C AB W/REFL TO HCV RNA, QN, PCR (02/07/2022 11:16 AM EDT) HEPATITIS C ANTIBODY NON-REACT ULISES NON-REACT ULISES [facility] INDEX 0.17 <1.00 [facility] Comment: HCV antibody was non-reactive. There is no laboratory evidence of HCV infection. In most cases, no further action is required. However, if recent HCV exposure is suspected, a test for HCV RNA (test code 85263) is suggested. For additional information please refer to http://Nexthink.LilaKutu/faq/OOE78w0 (This link is being provided for informational/ educational purposes only.) 02/07/2022 11:1 6 AM EDT Charlie Baires MD HISTORICAL/NON ORD ERABLE LABS Final Result [facility] [address] * HIV 1/2 ANTIGEN/ANTIBODY,FOURTH GENERATION W/RFL (02/07/2022 11:16 AM EDT) Pathologist [facility] HIV-1/2 ANTIGEN AND ANTIBODIES, 4TH GENERATION W/ REFLEX NON-REACT ULISES NON-REACT ULISES [facility] Comment: HIV-1 antigen and HIV-1/HIV-2 antibodies were not detected. There is no laboratory evidence of HIV infection. PLEASE NOTE: This information has been disclosed to you from records whose confidentiality may be protected by state law. If your state requires such protection, then the state law prohibits you from making any further disclosure of the information without the specific written consent of the person to whom it pertains, or as otherwise permitted by law. A general authorization for the release of medical or other information is NOT sufficient for this purpose. For additional information please refer to http://Nexthink.LilaKutu/faq/FFM686 (This link is being provided for informational/ educational purposes only.) The performance of this assay has not been clinically validated in patients less than 2 years old. 02/07/2022 11:1 6 AM EDT us Charlie Baires MD LAB BLOOD ORDERABL ES Final Result [facility] [address] [place] [address], from Last 3 Months or Most Recently Relevant to Health Maintenance Insurance HMO DENTAL - [employer] Care Teams Automotive Window Tinter Relationship Specialty Start Date End Date Charlie Wilson MD [address] [place] [phone] PCP - General Internal Medicine 11/08/19
--- OUTSIDE RECORDS SUMMARY | 2025-04-06 08:45 | XMS_ITS | Encounter Summary ---
Author Organization [employer] Address [address] [facility] 7 [place] [address] Care Team Providers Care Founding Partner Name Role Phone Charlie Wilson MD Primary Care Prov ider Reason for Visit * Reason Comments Med Refill Encounter Details Date Type Department Care Team ([facility] st Contact Info) Description 10/06/2024 Refill [facility] CHC MED & PEDS [address] [place] [address] Charlie Wilson MD [address] [place] [address] Social History Tobacco Use Types Packs/Day Years [...] Description 05/04/2025 3:45 PM EST Office Visit [facility] MED & PEDS [address] [place] [address] Charlie Wilson MD [address] [place] [address] documented as of this encounter Visit Diagnoses Not on filedocumented in this encounter Additional Health Concerns Assessment Noted Time PHQ-9 Depression Total Score: 2 09/10/19 23 3:28 PM EDT documented as of this encounter Care Teams Founding Partner Relationship Specialty Start Date End Date Charlie Wilson MD [address] [place] [address] PCP - General Internal Medicine 11/08/19 documented as of this encounter
--- OUTSIDE RECORDS SUMMARY | 2025-04-06 08:45 | XMS_ITS | Encounter Summary ---
Author Organization [facility] Address [address] [facility] [address] [place] [phone] Phone Care Team Providers Care Emergency Manager Name Role Phone Pcp, Unknown Primary Care Provider Unavailabl e Encounter Details Date Type Department Care Team (Late st Contact Info) Description 10/12/2022 Procedure Pass [facility], Ct Scan - [facility] [address] [place] [address] Social History Tobacco Use Types Packs/Day Years Used Date Smoking Tobacco: Never Smokeless Tobacco: Never Alcohol Use Standard Drinks/Week Comments Never 0 (1 standard drink = 0.6 oz pur e alcohol) Education Answer Date Recorded Are you interested in more education? Not on elba e 10/12/2022 Are you concerned about learning? Not on file 10/12/2022 No 10/12/2022 No 10/12/2022 Intimate Partner Violence Answer Date R ecorded [...] PM EDT Sexual Orientation Not on file documented as of this encounter Functional Status * Calculated C-SSRS Risk Score (Lifetime/Recent) Answer Date of Assessment Author No Risk Indicated 10/12/2022 2:16 PM EDT Licha Huang RN * [place] Suicide Severity Rating Scale (Screener/Recent Self-Report) Question Answer Date of Assessment Author 1. Wish to be (Past 1 Month) No 023 2:16 PM EDT Licha Huang RN 2. Non-Specific Active Suici berlin Thoughts (Past 1 Month) No 10/12/2022 2:16 PM EDT Licha Huang RN 6. Suicidal Behavior (Lifetime) No 3 2:16 PM EDT Licha Huang RN documented as of this encounter Plan of Treatment Not on file documented as of this encounter Visit Diagnoses Not on filedocumented in this encounter Care Teams Emergency Manager Relationship Specialty Start Date End Date Pcp, Unknown PCP - General 10/12/22 documented as of this encounter Additional Source Comments The information contained in this document represents components of the legal health record. It is not the complete legal health record.Formerly [facility]
--- OUTSIDE RECORDS SUMMARY | 2025-04-06 08:46 | XMS_ITS | Encounter Summary ---
Author Organization [employer] Address [address] [facility] 7t [place] [address] Care Team Providers Care Rn Referral Name Role Phone Charlie Wilson MD Primary Care Prov ider Encounter Details Date Type Department Care Team ([facility] Contact Info) Description 11/02/2023 Orders Only [facility] CHC MED & PEDS [address] [place], [place] [phone] Charlie Wilson MD [address] [place] [address] Social History Tobacco Use Types Packs/Day Years [...] Answer Date Recorded Patient Health Questionnaire-2 Score 2 09/09/2022 Sex and Gender Information Value Date Recorded Sex Assigned at Male 04/14/2022 10:31 AM EDT Legal Sex Male 10:31 AM EDT Gender Identity Male 04/14/2022 10:31 AM EDT Sexual Orientation Straight 04/14/2022 10 :31 AM EDT documented as of this encounter Plan of Treatment Upcoming Encounters Date Type Department Care Team (Late st Contact Info) Description 05/04/2025 3:45 PM EST Office Visit [facility] MED & PEDS [address] [place] [address] Charlie Wilson MD [address] [place] [address] documented as of this encounter Visit Diagnoses Not on filedocumented in this encounter Additional Health Concerns Assessment Noted Time PHQ-9 Depression Total Score: 2 09/10/19 23 3:28 PM EDT documented as of this encounter Care Teams Rn Referral Relationship Specialty Start Date End Date Charlie Wilson MD [address] [place] [address] PCP - General Internal Medicine 11/08/19 documented as of this encounter
--- OUTSIDE RECORDS SUMMARY | 2025-04-06 08:46 | XMS_ITS | Encounter Summary ---
Author Organization [employer] Address [address] [place] [address] 7 [place] [address] Care Team Providers Care Skin Pass Operator Name Role Phone Charlie Wilson MD Primary Care Prov ider Encounter Details Date Type Department Care Team (Late Contact Info) Description 10/20/2022 Orders Only [facility] MED & PEDS [address] [place] [address] Charlie Wilson MD [address] [place] [address] Social History Tobacco Use Types Packs/Day Years Used Date Smoking Tobacco: Never Smokeless Tobacco: Never Depression Answer Date Recorded Patient Health Questionnaire-9 Score 2 09/09/2022 Depression Answer Date Recorded Patient Health Questionnaire-2 Score 2 09/09/2022 Sex and Gender Information Value Date Recorded Sex Assigned at Male 04/14/2022 10:31 AM EDT Legal Sex Male 10:31 AM EDT Gender Identity Male 04/14/2022 10:31 AM EDT Sexual Orientation Straight 04/14/2022 10 :31 AM EDT documented as of this encounter Plan of Treatment Upcoming Encounters Date Type Department Care Team (Late Contact Info) Description 05/04/2025 3:45 PM EST Office Visit [facility] MED & PEDS [address] [place], [place] [phone] Charlie Wilson MD [address] [place] [address] documented as of this encounter Visit Diagnoses Not on filedocumented in this encounter Additional Health Concerns Assessment Noted Time PHQ-9 Depression Total Score: 2 09/10/19 23 3:28 PM EDT documented as of this encounter Care Teams Skin Pass Operator Relationship Specialty Start Date End Date Charlie Wilson MD [address] [place] [id number] PCP - General Internal Medicine 11/08/19 documented as of this encounter
--- OUTSIDE RECORDS SUMMARY | 2025-04-06 08:46 | XMS_ITS | Encounter Summary ---
Author Organization [employer] Address [address] [facility] 7 [place] [address] Care Team Providers Care Large Animal Veterinarian Name Role Phone Charlie Wilson MD Primary Care Prov ider Reason for Visit * Reason Onset Date Comments Med Refill 10/07/2024 Encounter Details Date Type Department Care Team (Late st Contact Info) Description 10/07/2024 Telephone [facility] MEDICINE [address] [place] [address] Charlie Wilson MD [address] [place], [place] [phone] Med Refill Social History Tobacco Use Types Packs/Day Years [...] AM EDT documented as of this encounter Miscellaneous Notes * Telephone Encounter - Alanis Day - 10/07/2024 8:17 AM EDT TC from pt requesting medication refill. Medications needing refill : Mounjaro 15 MG/0.5ML solution auto-injector To be sent to: [id number] - [place], [place] - [facility] [employer] documented in this encounter Plan of Treatment Upcoming Encounters Date Type Department Care Team (Late st Contact Info) Description 05/04/2025 3:45 PM EST Office Visit [facility] CHC MED & PEDS [address] [place] [address] Charlie Wilson MD [address] [place] [address] documented as of this encounter Visit Diagnoses Not on filedocumented in this encounter Additional Health Concerns Assessment Noted Time PHQ-9 Depression Total Score: 2 09/10/19 23 3:28 PM EDT documented as of this encounter Care Teams Large Animal Veterinarian Relationship Specialty Start Date End Date Charlie Wilson MD [address] [place] [address] PCP - General Internal Medicine 11/08/19 documented as of this encounter
--- OUTSIDE RECORDS SUMMARY | 2025-04-06 08:46 | XMS_ITS | Encounter Summary ---
Author Organization [employer] Address [address] [facility] 7t [place] [address] Care Team Providers Care Help Desk Associate Name Role Phone hCarlie Wilson MD Primary Care Prov ider Encounter Details Date Type Department Care Team ([facility] Contact Info) Description 2024 Orders Only [facility] [address] [place], [place] [phone] ProviderKerry MD Social History Tobacco Use Types Packs/Day Years [...] Description 05/04/2025 3:45 PM EST Office Visit [facility] MED & PEDS [address] [place] [address] Charlie Wilson MD [address] [place] [address] documented as of this encounter Procedures Procedure Name Priority Date/Time Associated Diagnosis Comments DIABETES EYE EXAM Routine 2024 12:59 PM EDT documented in this encounter Results * Diabetes Eye Exam (2024 12:59 PM EDT) us Historical Provider HEALTH MAINTENANCE Final Result documented in this encounter Visit Diagnoses Not on filedocumented in this encounter Additional Health Concerns Assessment Noted Time PHQ-9 Depression Total Score: 2 09/10/19 23 3:28 PM EDT documented as of this encounter Care Teams Help Desk Associate Relationship Specialty Start Date End Date Charlie Wilson MD [address] [place] [address] PCP - General Internal Medicine 11/08/19 documented as of this encounter
--- OUTSIDE RECORDS SUMMARY | 2025-04-06 08:46 | XMS_ITS | Encounter Summary ---
Author Organization [email or web address] Address [address] [facility] [address] [address] 7[address] [place] [address] Care Team Providers Care Client Account Representative Name Role Phone Charlie Wilson MD Primary Care Prov ider Encounter Details Date Type Department Care Team ([facility] st Contact Info) Description 12/12/2024 Orders Only [facility] CHC MED & PEDS [address] [place], [place] [phone] ProviderKerry MD Social History Tobacco Use Types [...] Description 05/04/2025 3:45 PM EST Office Visit [facility] MED & PEDS [address] [place] [address] Charlie Wilson MD [address] [place] [address] documented as of this encounter Procedures Procedure Name Priority Date/Time Associated Diagnosis Comments HM COLONOSCOPY Routine 04/18/2022 1:05 PM EDT documented in this encounter Results * Hm Colonoscopy (04/18/2022 1:05 PM EDT) Historical Provider HEALTH MAINTENANCE Final Result documented in this encounter Visit Diagnoses Not on filedocumented in this encounter Additional Health Concerns Assessment Noted Time PHQ-9 Depression Total Score: 2 09/10/19 23 3:28 PM EDT documented as of this encounter Care Teams Client Account Representative Relationship Specialty Start Date End Date Charlie Wilson MD [address] [place] [address] PCP - General Internal Medicine 11/08/19 documented as of this encounter
--- OUTSIDE RECORDS SUMMARY | 2025-04-06 08:46 | XMS_ITS | Encounter Summary ---
Author Organization [employer] Address [address] [place] [address] Care Team Providers Care Core Sucker Name Role Phone Charlie Wilson MD Primary Care Prov ider Encounter Details Date Type Department Care Team ([facility] Contact Info) Description 11/11/2022 Orders Only [facility] MED & PEDS [address] [place] [address] Tiana Jeong LPN Social History Tobacco Use Types Packs/Day Years [...] Description 05/04/2025 3:45 PM EST Office Visit [facility] CHC MED & PEDS [address] [place] [address] Charlie Wilson MD [address] [place] [address] documented as of this encounter Visit Diagnoses Not on filedocumented in this encounter Additional Health Concerns Assessment Noted Time PHQ-9 Depression Total Score: 2 09/10/19 23 3:28 PM EDT documented as of this encounter Care Teams Core Sucker Relationship Specialty Start Date End Date Charlie Wilson MD [address] [place] [id number] PCP - General Internal Medicine 11/08/19 documented as of this encounter
[2025-04-06 14:35] LABS: MANUAL DIFF FLAG NO
[2025-04-06 14:45] LABS: Hematocrit 52.0 % (42.0-52.0); Hemoglobin 17.2 g/dl (14.0-18.0); Imm Gran Abs Auto 0.03 X10*3/uL (0.00-0.03); Imm Gran Pct Auto 0.4 % (0.0-0.4); Lymphocytes Absolute Auto 2.3 X10*3/uL (1.2-4.9); Mean Corpuscular HGB Conc 33.1 g/dl (31.0-36.0); Mean Corpuscular Hemoglobin 31.7 pg (27.0-33.0); Mean Corpuscular Volume 95.8 fL (80.0-98.0); NRBC Abs Auto 0.000 X10*3/uL (0.0-0.012); NRBC Pct Auto 0.0 /100WBC (0.0-0.2); Platelet Count 219 X10*3/uL (160-400); Red Blood Count 5.43 X10*6/uL (4.60-5.80); White Blood Count 8.0 X10*3/uL (4.8-10.8)
[2025-04-06 15:03] LABS: Alanine Aminotransferase 33 U/L (0-40); Albumin Level 4.3 g/dL (3.5-5.0); Alkaline Phosphatase 60 U/L (39-117); Anion Gap 12 (12-20); Aspartate Amino Transferase 44 U/L (5-37); Blood Urea Nitrogen 15 mg/dL (9-16); Calcium 9.3 mg/dL (8.4-10.2); Carbon Dioxide 28 mmol/L (22-29); Chloride 104 mmol/L (96-108); Cholesterol 182 mg/dL (<200); Estimated Glomerular Filt Rate > 60; HDL Cholesterol 41 mg/dL (>40); Iron 195 mcg/dL (45-160); Percent Iron Saturation 56 % (15-50); Potassium 3.9 mmol/L (3.3-5.1); Sodium 140 mmol/L (135-145); Total Iron Binding Capacity 348 mcg/dL (228-428); Total Protein 7.8 g/dL (6.5-8.0); Triglycerides 155 mg/dL (<150); Unsaturated Iron Binding 153 ug/dL
== END 2025-04-06 08:22 | disposition home or self-care (01) ==
LOC: HO.CHCLDS 08:21
PROVIDERS: Visit Provider Internal Medicine
DX: E11.9 Type 2 diabetes mellitus without complications (principal)
CPT/HCPCS: 36415; 80053; 80061; 82570; 83540; 84443; 85025